=== PATIENT | female | born 1940 | race Caucasian/White ===

== ENCOUNTER 2021-10-20 15:31 | Inpatient (IN) | payer MEDICARE, BC ==
[2021-10-20] MEDS ORDERED: Sodium Chloride 0.9% 10 ML Syringe FLUSH PRN (16:15)
[2021-10-20] MEDS ORDERED: Ondansetron 4 MG/2 ML SDV IVPUSH ONE (16:15)
[2021-10-20] MEDS ORDERED: Sodium Chloride 0.9% 1,000 ML IV SCH (16:15)
[2021-10-20] MEDS ORDERED: Morphine 2 MG/ML SYRINGE IVPUSH ONE (16:18)
[2021-10-20 16:21] LABS: BASE EXCESS VENOUS,POC -2 mmol/L (-2 - 3+); PCO2 VENOUS,POC 32 mmHg (41-51); PH VENOUS,POC 7.43 pH Units (7.32-7.43)
[2021-10-20 16:34] LABS: ESTIMATED GFR 41 mL/min (>60)
[2021-10-20] MEDS ORDERED: Sodium Chloride 0.9% 500 ML IV ONE (17:51)
[2021-10-20] MEDS ORDERED: Ondansetron 4 MG/2 ML SDV IV PRN (19:09)
[2021-10-20] MEDS ORDERED: Morphine 2 MG/ML SYRINGE IVPUSH PRN (19:09)
[2021-10-20] MEDS ORDERED: Levofloxacin/Dextrose 5%-Water 500 MG in Premix Bag 1 BAG IV ONE (19:30)
[2021-10-20] MEDS ORDERED: Levofloxacin/Dextrose 5%-Water 500 MG in Premix Bag 1 BAG IV SCH ×4 (19:30)
[2021-10-20] MEDS: Sodium Chloride 0.9% 1,000 ML IV SCH (20:31)
[2021-10-20] MEDS ORDERED: Apixaban 5 MG Tab PO SCH (21:00)
[2021-10-21] MEDS: Sodium Chloride 0.9% 1,000 ML IV SCH ×3 (06:34→23:02)
[2021-10-21 06:50] LABS: ESTIMATED GFR 50 mL/min (>60)
[2021-10-21] MEDS: Carvedilol 6.25 MG Tab PO SCH ×2 (15:11→20:38)
[2021-10-21] MEDS: Apixaban 2.5 MG Tab PO SCH (20:38)
[2021-10-21] MEDS: Simvastatin 20 MG Tab PO SCH (20:38)
[2021-10-22 06:43] LABS: ESTIMATED GFR 64 mL/min (>60)
[2021-10-22] MEDS: Sodium Chloride 0.9% 1,000 ML IV SCH ×2 (07:34→18:38)
[2021-10-22] MEDS ORDERED: Levofloxacin/Dextrose 5%-Water 150 ML IV SCH (09:00)
[2021-10-22] MEDS: Apixaban 2.5 MG Tab PO SCH ×2 (09:23→21:58)
[2021-10-22] MEDS: Carvedilol 6.25 MG Tab PO SCH ×3 (09:23→23:04)
[2021-10-22] MEDS: Calcium Carbonate 500 MG Tablet PO SCH (09:23)
[2021-10-22] MEDS: Lisinopril 2.5 MG Tab PO SCH (09:24)
[2021-10-22] MEDS: Simvastatin 20 MG Tab PO SCH (21:59)
[2021-10-23 06:45] LABS: ESTIMATED GFR 64 mL/min (>60)
[2021-10-23] MEDS: Sodium Chloride 0.9% 1,000 ML IV SCH (08:03)
[2021-10-23] MEDS: Carvedilol 6.25 MG Tab PO SCH ×2 (08:49→14:51)
[2021-10-23] MEDS: Calcium Carbonate 500 MG Tablet PO SCH (08:50)
[2021-10-23] MEDS: Apixaban 2.5 MG Tab PO SCH (08:50)
[2021-10-23] MEDS: Lisinopril 2.5 MG Tab PO SCH (08:50)
[2021-10-23] MEDS ORDERED: Polyethylene Glycol 3350 Powder 17 GM Packet PO SCH (11:45)
[2021-10-23] MEDS ORDERED: Levofloxacin 500 MG Tab PO ONE (14:49)
== END 2021-10-23 14:50 | disposition home or self-care (01) | DRG 388 ==
LOC: FB.ED 15:31 → FB.MS 18:27 → UNDOADMOB 18:27 → OBSVTOIN 10-21 09:43
PROVIDERS: ADMIT Emergency Medicine; ATTEND Family Medicine
DX: K56.609 Unspecified intestinal obstruction, unspecified as to partial versus complete obstruction (principal); K56.600 Partial intestinal obstruction, unspecified as to cause; J18.9 Pneumonia, unspecified organism; J98.11 Atelectasis; I48.11 Longstanding persistent atrial fibrillation; Z90.710 Acquired absence of both cervix and uterus; J44.0 Chronic obstructive pulmonary disease with (acute) lower respiratory infection; I50.9 Heart failure, unspecified; Z79.01 Long term (current) use of anticoagulants; E78.5 Hyperlipidemia, unspecified; E78.2 Mixed hyperlipidemia; J44.9 Chronic obstructive pulmonary disease, unspecified; Z79.899 Other long term (current) drug therapy; H54.7 Unspecified visual loss; I11.0 Hypertensive heart disease with heart failure; E78.00 Pure hypercholesterolemia, unspecified; Z86.19 Personal history of other infectious and parasitic diseases; Z20.822 Contact with and (suspected) exposure to COVID-19; Z95.810 Presence of automatic (implantable) cardiac defibrillator
CPT/HCPCS: 36415 ×2; 71045; 74176; 80048; 80053; 81001; 83605; 83690; 83735; 84484; 85025 ×2; 86140; 93005; 93010; 94150; 96361; 96374; 96375; 99284; 99285; A9270 ×2; J1956; J2270; J2405 ×2; J7030 ×3; U0002; 74019; 99222; 99232; 99238

== ENCOUNTER 2023-12-19 07:50 | Day surgery (SDC) | payer MEDICARE, BC ==
[2023-12-19] MEDS ORDERED: fentaNYL 100 MCG/2 ML SDV IV ONE (07:51)
[2023-12-19] MEDS ORDERED: Midazolam 1 MG/ML 2 ML SDV IV ONE (07:51)
[2023-12-19] MEDS ORDERED: Lactated Ringers 1,000 ML IV PRN (08:00)
[2023-12-19] MEDS: Sodium Chloride 0.9% 10 ML Syringe FLUSH PRN (08:35)
[2023-12-19] MEDS: acetaZOLAMIDE 500 MG Cap.ER PO ONE (10:50)
== END 2023-12-19 11:15 | disposition home or self-care (01) ==
LOC: FB.SDS 07:50
PROVIDERS: ATTEND Ophthalmology
DX: H26.9 Unspecified cataract (principal); I48.91 Unspecified atrial fibrillation; Z79.899 Other long term (current) drug therapy; Z79.01 Long term (current) use of anticoagulants; Z88.8 Allergy status to other drugs, medicaments and biological substances
CPT/HCPCS: 00142; 99100; A9270-GY; J2250; J3010; J3490; V2632

== ENCOUNTER 2024-01-16 09:32 | Day surgery (SDC) | payer MEDICARE, BC ==
[~2024-01-16 09:32] MED LIST: Lactated Ringers 1,000 ML IV PRN
[2024-01-16] MEDS ORDERED: fentaNYL 100 MCG/2 ML SDV IV ONE (09:33)
[2024-01-16] MEDS ORDERED: Midazolam 1 MG/ML 2 ML SDV IV ONE (09:33)
[2024-01-16] MEDS: Sodium Chloride 0.9% 10 ML Syringe FLUSH PRN (10:15)
[2024-01-16] MEDS: acetaZOLAMIDE 500 MG Cap.ER PO ONE (11:29)
== END 2024-01-16 12:33 | disposition home or self-care (01) ==
LOC: FB.SDS 09:32
PROVIDERS: ATTEND Ophthalmology
DX: H26.9 Unspecified cataract (principal); E78.5 Hyperlipidemia, unspecified; I48.91 Unspecified atrial fibrillation; Z79.01 Long term (current) use of anticoagulants; Z79.899 Other long term (current) drug therapy; Z88.8 Allergy status to other drugs, medicaments and biological substances
CPT/HCPCS: 66984; A9270; J2250; J3010; J3490; V2632; 00142; 99100